=== PATIENT | male | born 1955 | race Caucasian/White ===

== ENCOUNTER 2019-04-05 00:17 | Inpatient (IN) | payer BC ==
[~2019-04-05] VITALS: Ht 330.2 cm; Wt 71.0 kg
[~2019-04-05 00:17] MED LIST: DIPH50LI26 PO; FOLI1TAB16 PO; PANT40TA4 PO; thiamine tablet PO
[2019-04-05] MEDS ORDERED: MVI, adult No.4 with vit. K 10 ML in dextrose 5% water 500ml 500 ML IV ONE ×2 (00:30)
[2019-04-05] MEDS ORDERED: normal saline 1000ML IV soln IVB ONE (00:30)
[2019-04-05] MEDS ORDERED: LORazepam 2 mg/ml vial IV ONE (00:30)
[2019-04-05] MEDS ORDERED: ondansetron/PF 4mg/2ml inj IV ONE (00:35)
[2019-04-05] MEDS ORDERED: thiamine inj. 100 MG, magnesium 1 gm/2ml inj. 2 GM in normal saline 100ml IV soln 100 ML IV ONE (00:40)
[2019-04-05 00:53] LABS: HEMOGLOBIN 12.4 g/dl (14.0-17.9)
[2019-04-05 00:55] LABS: BASOPHILS % (AUTO) 0.8 % (0-1); EOSINOPHILS % (AUTO) 0.1 % (0-6); HEMATOCRIT 37.6 % (42.0-52.0); LYMPHOCYTES # (AUTO) 0.4 X10'3 (1.1-4.8); LYMPHOCYTES % (AUTO) 10.2 % (21-51); MEAN CORPUSCULAR HEMOGLOBIN 33.2 PG (27.0-31.0); MEAN CORPUSCULAR VOLUME 100.8 FL (78-98); MEAN PLATELET VOLUME 8.1 FL (7.4-10.4); MONOCYTES # (AUTO) 0.4 X10'3 (0-0.9); NEUTROPHILS # (AUTO) 3.4 X10'3 (1.8-7.7); NEUTROPHILS % (AUTO) 78.9 % (42-75); PLATELET COUNT 136 X10'3 (140-440); RED BLOOD COUNT 3.73 X10'6 (4.70-6.10); RED CELL DISTRIBUTION WIDTH 18.1 % (11.5-14.5); WHITE BLOOD COUNT 4.3 X10'3 (4.5-11.0)
[2019-04-05 01:10] LABS: PARTIAL THROMBOPLASTIN TIME 25 SECONDS (22-32)
[2019-04-05 01:15] LABS: CLARITY,URINE CLEAR (Clear); COLOR,URINE YELLOW (Yellow); GLUCOSE, URINE NEGATIVE (Neg); KETONES,URINE 15 mg/dl (Neg); LEUKOCYTE ESTERASE ,URINE NEGATIVE (Neg); NITRITES, URINE NEGATIVE (Neg); OCCULT BLOOD,URINE SMALL (Neg); PH,URINE 5.5 (4.8-8.0); PROTEIN,URINE 30 mg/dl (Neg)
[2019-04-05 01:23] LABS: UA COLLECTION TYPE URINAL
[2019-04-05 01:25] LABS: BACTERIA,URINE FEW /HPF (Neg); SQUAMOUS EPITHELIAL CELL,UR FEW /LPF (FEW); WBC,URINE 0-4 /HPF (0-4)
[2019-04-05 01:28] LABS: ANION GAP 26 (8-16); CHLORIDE 102 MMOL/L (99-107); GLUCOSE 114 MG/DL (70-104); POTASSIUM 3.8 MMOL/L (3.5-5.1); SODIUM 143 MMOL/L (135-145); TOTAL CARBON DIOXIDE 15.1 MMOL/L (24-32)
[2019-04-05 01:29] LABS: BLOOD UREA NITROGEN 7 MG/DL (7-18); BUN/CREATININE RATIO 5.4 (5.4-32.0); eGFR 56 ML/MIN
[2019-04-05 01:30] LABS: ALBUMIN 3.7 G/DL (3.4-5.0); BILIRUBIN,TOTAL 1.2 MG/DL (0.1-1.0); CALCIUM 8.8 MG/DL (8.5-10.1); TOTAL PROTEIN 6.9 G/DL (6.4-8.2); TROPONIN I < 0.04 NG/ML (0.0-0.05)
[2019-04-05 01:32] LABS: ALANINE AMINOTRANSFERASE 80 U/L (12-78); ALKALINE PHOSPHATASE 88 IU/L (46-116); ASPARTATE AMINO TRANSFERASE 218 U/L (10-37)
[2019-04-05 01:33] LABS: ETHANOL < 0.010 GM/DL (0.0-0.010)
[2019-04-05] MEDS ORDERED: NO HOME MEDS (01:52)
[2019-04-05 02:03] LABS: URINE AMPHETAMINE SCREEN NEGATIVE (Neg); URINE BARBITUATE SCREEN NEGATIVE (Neg); URINE BENZODIAZEPINES SCREEN POSITIVE (Neg); URINE CANNABINOID SCREEN NEGATIVE (Neg); URINE COCAINE SCREEN NEGATIVE (Neg); URINE METHADONE SCREEN NEGATIVE (Neg); URINE OPIATE SCREEN NEGATIVE (Neg); URINE PHENCYCLIDINE SCREEN NEGATIVE (Neg)
[2019-04-05] MEDS ORDERED: potassium CL 10mEq/100ml bag 100 ML IV PRN ×2 (02:25)
[2019-04-05] MEDS ORDERED: acetaminophen 325mg tablet PO PRN (02:25)
[2019-04-05] MEDS ORDERED: magnesium 2GM in 50ml NS 50 ML IV PRN (02:25)
[2019-04-05] MEDS ORDERED: magnesium 4gm in 100ml NS 100 ML IV PRN (02:25)
[2019-04-05] MEDS ORDERED: ondansetron/PF 4mg/2ml inj IV PRN (02:25)
[2019-04-05] MEDS ORDERED: magnesium Cl slow-release 64mg tablet PO PRN (02:25)
[2019-04-05] MEDS ORDERED: mag hydrox/Alum hydrox/simeth 30ml oral suspension PO PRN (02:25)
[2019-04-05] MEDS ORDERED: magnesium hydroxide 30ml (MOM) UD suspension PO PRN (02:25)
[2019-04-05] MEDS ORDERED: potassium Cl 20 mEq SR tablet PO PRN (02:25)
[2019-04-05] MEDS: normal saline 1000ml 1,000 ML IV SCH ×3 (02:31→19:00)
[2019-04-05] MEDS ORDERED: thiamine inj. 100 MG in normal saline 100ml IV soln 100 ML IV ONE (03:10)
[2019-04-05] MEDS ORDERED: LORazepam 1 MG tablet PO PRN (03:10)
[2019-04-05] MEDS: LORazepam 2 mg/ml vial IV PRN ×4 (05:31→22:59)
[2019-04-05 05:38] VITALS: BP 120/77
--- NOTE | 2019-04-05 06:30 | NUR ---
Patient in room PCU 3024X. I have received report from Carmelita HARTMANN and had the opportunity to ask questions and assume patient care.
[2019-04-05 07:30] VITALS: BP 133/79
[2019-04-05] MEDS: K and/or MAG REPLACEMENT MC SCH (08:00)
[2019-04-05] MEDS: enoxaparin 40mg/0.4ml syringe SQ SCH (08:44)
[2019-04-05] MEDS: thiamine inj. 100 MG, folic acid inj. 2 MG in normal saline 100ml IV soln 100 ML IV SCH (08:45)
[2019-04-05] MEDS: MVI, adult No.4 with vit. K 10 ML in dextrose 5% water 500ml 500 ML IV SCH ×2 (08:45)
[2019-04-05 09:26] LABS: ALANINE AMINOTRANSFERASE 75 U/L (12-78); ALBUMIN 3.3 G/DL (3.4-5.0); ALBUMIN/GLOBULIN RATIO 1.1 (1.1-1.5); ALKALINE PHOSPHATASE 82 IU/L (46-116); ANION GAP 9 (8-16); ASPARTATE AMINO TRANSFERASE 254 U/L (10-37); BILIRUBIN,TOTAL 1.2 MG/DL (0.1-1.0); BLOOD UREA NITROGEN 7 MG/DL (7-18); CHLORIDE 102 MMOL/L (99-107); CREATININE 0.78 MG/DL (0.60-1.10); GLUCOSE 121 MG/DL (70-104); POTASSIUM 3.8 MMOL/L (3.5-5.1); SODIUM 140 MMOL/L (135-145); TOTAL CARBON DIOXIDE 29.1 MMOL/L (24-32); TOTAL PROTEIN 6.2 G/DL (6.4-8.2); eGFR > 90 ML/MIN
[2019-04-05 11:00] VITALS: BP 123/78
[2019-04-05 15:00] VITALS: BP 125/81
[2019-04-05 18:00] VITALS: BP 141/85
--- NOTE | 2019-04-05 18:33 | NUR ---
Problems reprioritized. Patient report given, questions answered & plan of care reviewed with Carmelita HARTMANN.
[2019-04-05 22:00] VITALS: BP 140/86
--- NOTE | 2019-04-05 22:32 | NUR ---
Paged Dr. Royal for additional medication orders. Pt currently on mild etoh protocol, ativan dosage not sufficient to reduce anxiety or withdrawal symptoms.
[2019-04-05] MEDS ORDERED: haloperidol 5mg tablet PO PRN (22:40)
[2019-04-05] MEDS ORDERED: haloperidol lactate 5mg/ml inj IM PRN (22:40)
[2019-04-06] MEDS: LORazepam 2 mg/ml vial IV PRN ×7 (00:13→17:14)
[2019-04-06 02:00] VITALS: BP 128/77
--- NOTE | 2019-04-06 05:19 | NUR ---
Pt is having severe ETOH withdrawal symptoms. During the course of this overnight shift, withdrawal behaviors quickly escalated from mild anxiety/agitation, headache and tremors, to extreme agitation with auditory/visual/tactile hallucinations, moderate headache, confused to day/place/time, constantly pulling at IV and telemetry wires, attempting to get out of bed, sensitive to light and sound, as well as swatting at the sitter at bedside who was attempting to reorient him. Pt's alcohol withdrawal score was increasing and his behaviors were escalating on the mild protocol, where he was receiving 2mg of IV Ativan Q2hrs. After contacting Dr. Royal, she agreed this patient needed the moderate alcohol withdrawal protocol ordered. The patient has been receiving 2mg of IV Ativan approximately each hour overnight to control his agitation as well as one dose of IM Haldol. He has had a sitter at bedside redirecting his behavior since approximately 2300. Although all of his VS have been mildly elevated (HR, RR, BP), they have not required any PRN medications and his oxygen saturations remain WNL on room air. No seizure activity witnessed, will continue to monitor.
[2019-04-06 06:13] LABS: BASOPHILS % (AUTO) 0.9 % (0-1); EOSINOPHILS % (AUTO) 0.9 % (0-6); HEMATOCRIT 34.7 % (42.0-52.0); HEMOGLOBIN 11.6 g/dl (14.0-17.9); LYMPHOCYTES # (AUTO) 0.8 X10'3 (1.1-4.8); LYMPHOCYTES % (AUTO) 32.2 % (21-51); MEAN CORPUSCULAR HEMOGLOBIN 33.2 PG (27.0-31.0); MEAN CORPUSCULAR HGB CONC 33.3 g/dL (33.0-36.5); MEAN CORPUSCULAR VOLUME 99.6 FL (78-98); MEAN PLATELET VOLUME 8.2 FL (7.4-10.4); MONOCYTES # (AUTO) 0.2 X10'3 (0-0.9); MONOCYTES % (AUTO) 9.1 % (2-12); NEUTROPHILS # (AUTO) 1.3 X10'3 (1.8-7.7); NEUTROPHILS % (AUTO) 56.9 % (42-75); PLATELET COUNT 90 X10'3 (140-440); RED BLOOD COUNT 3.48 X10'6 (4.70-6.10); RED CELL DISTRIBUTION WIDTH 17.4 % (11.5-14.5); WHITE BLOOD COUNT 2.4 X10'3 (4.5-11.0)
[2019-04-06 06:21] LABS: ALANINE AMINOTRANSFERASE 76 U/L (12-78); ALBUMIN 3.2 G/DL (3.4-5.0); ALBUMIN/GLOBULIN RATIO 1.1 (1.1-1.5); ALKALINE PHOSPHATASE 73 IU/L (46-116); ANION GAP 9 (8-16); ASPARTATE AMINO TRANSFERASE 221 U/L (10-37); BILIRUBIN,TOTAL 1.2 MG/DL (0.1-1.0); BLOOD UREA NITROGEN 4 MG/DL (7-18); BUN/CREATININE RATIO 5.3 (5.4-32.0); CALCIUM 8.3 MG/DL (8.5-10.1); CHLORIDE 108 MMOL/L (99-107); CREATININE 0.75 MG/DL (0.60-1.10); GLUCOSE 81 MG/DL (70-104); MAGNESIUM 1.7 MG/DL (1.5-2.4); PHOSPHORUS 1.6 MG/DL (2.3-4.5); POTASSIUM 3.1 MMOL/L (3.5-5.1); SODIUM 144 MMOL/L (135-145); TOTAL CARBON DIOXIDE 26.7 MMOL/L (24-32); eGFR > 90 ML/MIN
[2019-04-06 06:30] VITALS: BP 137/84
[2019-04-06] MEDS: potassium Cl 20 mEq SR tablet PO PRN ×3 (07:42→15:50)
[2019-04-06] MEDS: enoxaparin 40mg/0.4ml syringe SQ SCH (07:44)
[2019-04-06] MEDS: nicotine 14mg patch - 24hr TD SCH (07:48)
[2019-04-06] MEDS: MVI, adult No.4 with vit. K 10 ML in dextrose 5% water 500ml 500 ML IV SCH ×2 (07:49)
[2019-04-06] MEDS: thiamine inj. 100 MG, folic acid inj. 2 MG in normal saline 100ml IV soln 100 ML IV SCH (07:49)
[2019-04-06] MEDS: K and/or MAG REPLACEMENT MC SCH (08:02)
--- NOTE | 2019-04-06 08:19 | NUR ---
Paged Dr Joyner regarding blood glucose PAGER ID: [phone] MESSAGE: Stefania gimenez PCU: SANTOSH Martins, S. 3026B. FYI that patients blood sugar was 73 at 0805. Thank you Addendum: 04/06/19 at 0823 by Stefania Mcclure RN Paged Dr Joyner to disregard above page, it was the wrong patient.
[2019-04-06] MEDS: normal saline 1000ml 1,000 ML IV SCH ×2 (08:24→20:11)
[2019-04-06 11:00] VITALS: BP 134/83
[2019-04-06 15:00] VITALS: BP 129/89
--- NOTE | 2019-04-06 15:45 | NUR ---
Fever of 101.4. Tylenol 650mg PO PRN given. Will continue to monitor.
[2019-04-06] MEDS: gabapentin 100mg capsule PO SCH (15:49)
[2019-04-06] MEDS: acetaminophen 325mg tablet PO PRN (15:49)
[2019-04-06] MEDS: chlordiazePOXIDE 25mg capsule PO SCH (15:49)
--- NOTE | 2019-04-06 16:30 | NUR ---
Reassessed temp. Fever now at 101.7; tepid sponge bath done, ice water given. Will continue to monitor.
--- NOTE | 2019-04-06 17:08 | NUR ---
PAGER ID: [phone] MESSAGE: [id number]; Ember Martins Pt. temp 101.4 @ 1500. Kya given. Temp 101.7 now. HR 138. Pls. advise. Thanks! Eladio Jane [id number] Addendum: 04/06/19 at 1720 by Stefania Mcclure RN No new orders from Dr Joyner than to give already ordered PRN Ativan. Dr Joyner said he may end up ordering blood cultures
--- NOTE | 2019-04-06 17:49 | NUR ---
Temp down to 99.6. Will continue to monitor closely
--- NOTE | 2019-04-06 18:37 | NUR ---
Problems reprioritized. Patient report given, questions answered & plan of care reviewed with Deedee HARTMANN.
--- NOTE | 2019-04-06 18:40 | NUR ---
Patient in room PCU 3026. I have received report from SHAHBAZ Aguiar and had the opportunity to ask questions and assume patient care.
[2019-04-06 19:00] VITALS: BP 122/82
[2019-04-06 23:00] VITALS: BP 130/83
[2019-04-07] MEDS: gabapentin 100mg capsule PO SCH ×4 (00:10→23:23)
[2019-04-07] MEDS: chlordiazePOXIDE 25mg capsule PO SCH ×4 (00:10→23:23)
[2019-04-07] MEDS: LORazepam 2 mg/ml vial IV PRN ×2 (00:11→01:57)
[2019-04-07] MEDS: normal saline 1000ml 1,000 ML IV SCH ×2 (01:58→16:06)
[2019-04-07 05:23] LABS: BASOPHILS % (AUTO) 0.3 % (0-1); EOSINOPHILS % (AUTO) 0.1 % (0-6); HEMATOCRIT 36.5 % (42.0-52.0); HEMOGLOBIN 12.4 g/dl (14.0-17.9); LYMPHOCYTES # (AUTO) 0.7 X10'3 (1.1-4.8); LYMPHOCYTES % (AUTO) 11.9 % (21-51); MEAN CORPUSCULAR HEMOGLOBIN 33.7 PG (27.0-31.0); MEAN CORPUSCULAR VOLUME 99.2 FL (78-98); MEAN PLATELET VOLUME 9.1 FL (7.4-10.4); MONOCYTES # (AUTO) 0.5 X10'3 (0-0.9); MONOCYTES % (AUTO) 7.6 % (2-12); NEUTROPHILS % (AUTO) 80.1 % (42-75); PLATELET COUNT 73 X10'3 (140-440); RED BLOOD COUNT 3.68 X10'6 (4.70-6.10); RED CELL DISTRIBUTION WIDTH 16.8 % (11.5-14.5); WHITE BLOOD COUNT 6.2 X10'3 (4.5-11.0)
[2019-04-07 05:43] LABS: ALANINE AMINOTRANSFERASE 77 U/L (12-78); ALBUMIN 3.2 G/DL (3.4-5.0); ALKALINE PHOSPHATASE 81 IU/L (46-116); ANION GAP 9 (8-16); ASPARTATE AMINO TRANSFERASE 194 U/L (10-37); BILIRUBIN,TOTAL 1.3 MG/DL (0.1-1.0); CALCIUM 8.6 MG/DL (8.5-10.1); CHLORIDE 106 MMOL/L (99-107); CREATININE 0.83 MG/DL (0.60-1.10); GLUCOSE 93 MG/DL (70-104); MAGNESIUM 1.4 MG/DL (1.5-2.4); PHOSPHORUS 1.3 MG/DL (2.3-4.5); POTASSIUM 3.5 MMOL/L (3.5-5.1); SODIUM 141 MMOL/L (135-145); TOTAL CARBON DIOXIDE 26.2 MMOL/L (24-32); TOTAL PROTEIN 6.5 G/DL (6.4-8.2); eGFR > 90 ML/MIN
[2019-04-07 05:55] LABS: BLOOD UREA NITROGEN 4 MG/DL (7-18); BUN/CREATININE RATIO 4.8 (5.4-32.0)
--- NOTE | 2019-04-07 06:08 | NUR ---
Problems reprioritized. Patient report given, questions answered & plan of care reviewed with Stefania RN, PamelaRN.
[2019-04-07 06:30] VITALS: BP 136/89
[2019-04-07 07:02] LABS: PLATELET ESTIMATE DECREASED
[2019-04-07 07:11] LABS: ANISOCYTOSIS 1+; LARGE PLATELETS FEW
[2019-04-07 07:12] LABS: HYPOCHROMASIA 1+
[2019-04-07] MEDS: K and/or MAG REPLACEMENT MC SCH (08:00)
[2019-04-07] MEDS: nicotine 14mg patch - 24hr TD SCH (08:18)
[2019-04-07] MEDS: thiamine inj. 100 MG, folic acid inj. 2 MG in normal saline 100ml IV soln 100 ML IV SCH (08:23)
[2019-04-07] MEDS: MVI, adult No.4 with vit. K 10 ML in dextrose 5% water 500ml 500 ML IV SCH ×2 (08:24)
[2019-04-07 11:00] VITALS: BP 123/81
[2019-04-07 15:00] VITALS: BP 105/74
--- NOTE | 2019-04-07 18:10 | NUR ---
Patient in room PCU 3026. I have received report from SHAHBAZ Aguiar and had the opportunity to ask questions and assume patient care.
--- NOTE | 2019-04-07 18:12 | NUR ---
Problems reprioritized. Patient report given, questions answered & plan of care reviewed with Deedee HARTMANN.
--- NOTE | 2019-04-07 18:23 | NUR ---
New hire documentation: I have reviewed and agree with all interventions, assessments performed and documented by Pamela HARTMANN.
[2019-04-07 19:00] VITALS: BP 109/81
[2019-04-07] MEDS ORDERED: LORazepam 1 MG tablet PO PRN (22:40)
[2019-04-07] MEDS ORDERED: LORazepam 2 mg/ml vial IV PRN (22:40)
[2019-04-07 23:00] VITALS: BP 105/70
[2019-04-08] MEDS: normal saline 1000ml 1,000 ML IV SCH ×2 (02:33→14:15)
[2019-04-08 05:21] LABS: BASOPHILS % (AUTO) 0.3 % (0-1); EOSINOPHILS # (AUTO) 0.1 X10'3 (0-0.9); EOSINOPHILS % (AUTO) 1.3 % (0-6); HEMATOCRIT 33.7 % (42.0-52.0); HEMOGLOBIN 11.2 g/dl (14.0-17.9); LYMPHOCYTES # (AUTO) 0.9 X10'3 (1.1-4.8); LYMPHOCYTES % (AUTO) 16.7 % (21-51); MEAN CORPUSCULAR HEMOGLOBIN 33.8 PG (27.0-31.0); MEAN CORPUSCULAR HGB CONC 33.3 g/dL (33.0-36.5); MEAN CORPUSCULAR VOLUME 101.3 FL (78-98); MEAN PLATELET VOLUME 9.6 FL (7.4-10.4); MONOCYTES # (AUTO) 0.6 X10'3 (0-0.9); NEUTROPHILS # (AUTO) 3.7 X10'3 (1.8-7.7); NEUTROPHILS % (AUTO) 69.7 % (42-75); PLATELET COUNT 69 X10'3 (140-440); RED BLOOD COUNT 3.33 X10'6 (4.70-6.10); RED CELL DISTRIBUTION WIDTH 17.3 % (11.5-14.5); WHITE BLOOD COUNT 5.3 X10'3 (4.5-11.0)
[2019-04-08 05:35] LABS: ALANINE AMINOTRANSFERASE 56 U/L (12-78); ALBUMIN 2.5 G/DL (3.4-5.0); ALBUMIN/GLOBULIN RATIO 0.8 (1.1-1.5); ALKALINE PHOSPHATASE 71 IU/L (46-116); ANION GAP 9 (8-16); ASPARTATE AMINO TRANSFERASE 107 U/L (10-37); BILIRUBIN,TOTAL 1.1 MG/DL (0.1-1.0); BLOOD UREA NITROGEN 10 MG/DL (7-18); BUN/CREATININE RATIO 13.9 (5.4-32.0); CALCIUM 7.8 MG/DL (8.5-10.1); CHLORIDE 108 MMOL/L (99-107); CREATININE 0.72 MG/DL (0.60-1.10); GLUCOSE 89 MG/DL (70-104); MAGNESIUM 1.4 MG/DL (1.5-2.4); PHOSPHORUS 2.1 MG/DL (2.3-4.5); SODIUM 142 MMOL/L (135-145); TOTAL CARBON DIOXIDE 25.2 MMOL/L (24-32); TOTAL PROTEIN 5.7 G/DL (6.4-8.2); eGFR > 90 ML/MIN
[2019-04-08 05:45] LABS: POTASSIUM 3.2 MMOL/L (3.5-5.1)
--- NOTE | 2019-04-08 06:23 | NUR ---
Problems reprioritized. Patient report given, questions answered & plan of care reviewed with SHAHBAZ Blum.
--- NOTE | 2019-04-08 06:31 | NUR ---
Patient in room PCU 3017. I have received report from Deedee HARTMANN and had the opportunity to ask questions and assume patient care.
[2019-04-08] MEDS ORDERED: potassium CL 10mEq/100ml bag 100 ML IV PRN (06:45)
[2019-04-08] MEDS ORDERED: magnesium 4gm in 100ml NS 100 ML IV PRN (06:45)
[2019-04-08] MEDS ORDERED: potassium Cl 20 mEq SR tablet PO PRN (06:45)
[2019-04-08] MEDS ORDERED: magnesium 2GM in 50ml NS 50 ML IV PRN (06:45)
[2019-04-08 07:00] VITALS: BP 100/68
[2019-04-08] MEDS: K and/or MAG REPLACEMENT MC SCH (08:00)
[2019-04-08] MEDS: multivitamins, therapeutics tablet PO SCH (08:17)
[2019-04-08] MEDS: folic acid 1mg tablet PO SCH (08:17)
[2019-04-08] MEDS: thiamine 100mg tablet PO SCH (08:17)
[2019-04-08] MEDS: gabapentin 100mg capsule PO SCH ×2 (08:17→18:17)
[2019-04-08] MEDS: chlordiazePOXIDE 25mg capsule PO SCH (08:17)
[2019-04-08] MEDS: nicotine 14mg patch - 24hr TD SCH (08:18)
[2019-04-08] MEDS: potassium Cl 20 mEq SR tablet PO PRN ×2 (08:18→22:00)
[2019-04-08] MEDS: magnesium Cl slow-release 64mg tablet PO PRN ×2 (08:18→22:00)
[2019-04-08] MEDS ORDERED: sodium phosphate inj. 30 MMOL in dextrose 5%-water 250 ML IV ONE (08:20)
[2019-04-08 11:00] VITALS: BP 100/72
[2019-04-08 15:00] VITALS: BP 103/65
--- NOTE | 2019-04-08 18:15 | NUR ---
Patient in room PCU 3026. I have received report from SHAHBAZ Blum and had the opportunity to ask questions and assume patient care.
[2019-04-08 19:00] VITALS: BP 120/68
[2019-04-08 23:00] VITALS: BP 103/69
[2019-04-09] MEDS: gabapentin 100mg capsule PO SCH ×3 (00:05→16:00)
[2019-04-09] MEDS: potassium Cl 20 mEq SR tablet PO PRN ×3 (02:13→21:08)
[2019-04-09 03:00] VITALS: BP 106/70
[2019-04-09 04:42] LABS: BASOPHILS % (AUTO) 0.8 % (0-1); EOSINOPHILS # (AUTO) 0.1 X10'3 (0-0.9); EOSINOPHILS % (AUTO) 2.8 % (0-6); HEMATOCRIT 32.7 % (42.0-52.0); LYMPHOCYTES # (AUTO) 0.9 X10'3 (1.1-4.8); LYMPHOCYTES % (AUTO) 24.1 % (21-51); MEAN CORPUSCULAR HEMOGLOBIN 33.7 PG (27.0-31.0); MEAN CORPUSCULAR HGB CONC 33.5 g/dL (33.0-36.5); MEAN CORPUSCULAR VOLUME 100.5 FL (78-98); MEAN PLATELET VOLUME 8.2 FL (7.4-10.4); MONOCYTES # (AUTO) 0.7 X10'3 (0-0.9); MONOCYTES % (AUTO) 18.2 % (2-12); NEUTROPHILS % (AUTO) 54.1 % (42-75); PLATELET COUNT 76 X10'3 (140-440); RED BLOOD COUNT 3.26 X10'6 (4.70-6.10); WHITE BLOOD COUNT 3.6 X10'3 (4.5-11.0)
[2019-04-09 05:12] LABS: ALANINE AMINOTRANSFERASE 51 U/L (12-78); ALBUMIN 2.5 G/DL (3.4-5.0); ALBUMIN/GLOBULIN RATIO 0.8 (1.1-1.5); ALKALINE PHOSPHATASE 71 IU/L (46-116); ANION GAP 9 (8-16); ASPARTATE AMINO TRANSFERASE 74 U/L (10-37); BILIRUBIN,TOTAL 0.8 MG/DL (0.1-1.0); BLOOD UREA NITROGEN 10 MG/DL (7-18); BUN/CREATININE RATIO 14.5 (5.4-32.0); CALCIUM 7.6 MG/DL (8.5-10.1); CHLORIDE 109 MMOL/L (99-107); CREATININE 0.69 MG/DL (0.60-1.10); GLUCOSE 93 MG/DL (70-104); MAGNESIUM 1.1 MG/DL (1.5-2.4); PHOSPHORUS 2.8 MG/DL (2.3-4.5); POTASSIUM 3.3 MMOL/L (3.5-5.1); SODIUM 143 MMOL/L (135-145); TOTAL CARBON DIOXIDE 25.3 MMOL/L (24-32); TOTAL PROTEIN 5.7 G/DL (6.4-8.2); eGFR > 90 ML/MIN
[2019-04-09] MEDS: normal saline 1000ml 1,000 ML IV SCH ×3 (05:14→16:24)
--- NOTE | 2019-04-09 06:20 | NUR ---
Problems reprioritized. Patient report given, questions answered & plan of care reviewed with SHAHBAZ Blum.
--- NOTE | 2019-04-09 06:28 | NUR ---
Patient in room PCU 3026. I have received report from Deedee HARTMANN and had the opportunity to ask questions and assume patient care.
[2019-04-09 07:00] VITALS: BP 96/64
[2019-04-09] MEDS: K and/or MAG REPLACEMENT MC SCH (08:00)
[2019-04-09] MEDS: multivitamins, therapeutics tablet PO SCH (08:10)
[2019-04-09] MEDS: folic acid 1mg tablet PO SCH (08:10)
[2019-04-09] MEDS: thiamine 100mg tablet PO SCH (08:10)
[2019-04-09] MEDS: nicotine 14mg patch - 24hr TD SCH (08:11)
--- NOTE | 2019-04-09 14:04 | NUR ---
WOUND INFECTION EDUCATION PROVIDED BY WOUND CARE 1. Patient instructed to call their primary doctor, or go the ED immediately if any of the following symptoms occur: * Increased pain in wound * Increase in drainage from the wound * Redness in the skin surrounding the wound * Warmth in the skin surrounding the wound * Bleeding from the wound * Temperature of 101 or greater 2. If any of these occur while in the hospital tell a nurse immediately. Addendum: 04/09/19 at 1405 by Kadie Diaz RN Amended: Links added.
[2019-04-09 15:00] VITALS: BP 108/71
--- NOTE | 2019-04-09 18:08 | NUR ---
Problems reprioritized. Patient report given, questions answered & plan of care reviewed with Shana HARTMANN. Patient stable at transfer of care.
--- NOTE | 2019-04-09 18:19 | NUR ---
Patient in room PCU 3026. I have received report from SHAHBAZ Blum and SHAHBAZ Galan and had the opportunity to ask questions and assume patient care.
[2019-04-09 19:00] VITALS: BP 111/74
[2019-04-09] MEDS ORDERED: LORazepam 2 mg/ml vial IV PRN (22:40)
[2019-04-09] MEDS ORDERED: LORazepam 1 MG tablet PO PRN (22:40)
[2019-04-09 23:00] VITALS: BP 125/82
[2019-04-10] MEDS: gabapentin 100mg capsule PO SCH ×3 (00:56→16:08)
[2019-04-10] MEDS: potassium Cl 20 mEq SR tablet PO PRN (01:10)
[2019-04-10 03:00] VITALS: BP 127/76
[2019-04-10] MEDS: normal saline 1000ml 1,000 ML IV SCH ×3 (03:17→22:24)
[2019-04-10 06:09] LABS: ALANINE AMINOTRANSFERASE 54 U/L (12-78); ALBUMIN 2.4 G/DL (3.4-5.0); ALBUMIN/GLOBULIN RATIO 0.8 (1.1-1.5); ALKALINE PHOSPHATASE 65 IU/L (46-116); ANION GAP 7 (8-16); ASPARTATE AMINO TRANSFERASE 88 U/L (10-37); BILIRUBIN,TOTAL 0.6 MG/DL (0.1-1.0); BLOOD UREA NITROGEN 9 MG/DL (7-18); CALCIUM 8.4 MG/DL (8.5-10.1); CHLORIDE 112 MMOL/L (99-107); GLUCOSE 93 MG/DL (70-104); PHOSPHORUS 1.9 MG/DL (2.3-4.5); POTASSIUM 4.1 MMOL/L (3.5-5.1); SODIUM 143 MMOL/L (135-145); TOTAL CARBON DIOXIDE 23.9 MMOL/L (24-32); TOTAL PROTEIN 5.4 G/DL (6.4-8.2); eGFR > 90 ML/MIN
--- NOTE | 2019-04-10 06:12 | NUR ---
Increase in anxiety and agitation with patient verbalizing need to go home. I was able to talk the patient into staying until he spoke the MD. Sitter still at bedside. Will continue to closely monitor.
--- NOTE | 2019-04-10 06:18 | NUR ---
Problems reprioritized. Patient report given, questions answered & plan of care reviewed with SHAHBAZ Blum.
--- NOTE | 2019-04-10 06:22 | NUR ---
Patient in room PCU 3026. I have received report from Shana HARTMANN and had the opportunity to ask questions and assume patient care.
[2019-04-10 07:00] VITALS: BP 132/87
--- NOTE | 2019-04-10 07:05 | NUR ---
Page sent to Dr. Cartwright: [id number] Rehan Martins: JAMIE, critical mag 1.0. Pt on replacement protocol, I will replace it. Thanks, Viktoria [phone]
[2019-04-10 07:33] LABS: BASOPHILS % (AUTO) 0.9 % (0-1); EOSINOPHILS # (AUTO) 0.1 X10'3 (0-0.9); EOSINOPHILS % (AUTO) 2.9 % (0-6); HEMATOCRIT 32.8 % (42.0-52.0); LYMPHOCYTES # (AUTO) 0.8 X10'3 (1.1-4.8); LYMPHOCYTES % (AUTO) 22.3 % (21-51); MEAN CORPUSCULAR HGB CONC 33.4 g/dL (33.0-36.5); MEAN CORPUSCULAR VOLUME 101.9 FL (78-98); MONOCYTES # (AUTO) 0.9 X10'3 (0-0.9); MONOCYTES % (AUTO) 25.7 % (2-12); NEUTROPHILS # (AUTO) 1.7 X10'3 (1.8-7.7); NEUTROPHILS % (AUTO) 48.2 % (42-75); PLATELET COUNT 130 X10'3 (140-440); RED BLOOD COUNT 3.22 X10'6 (4.70-6.10); RED CELL DISTRIBUTION WIDTH 16.7 % (11.5-14.5); WHITE BLOOD COUNT 3.4 X10'3 (4.5-11.0)
[2019-04-10] MEDS: K and/or MAG REPLACEMENT MC SCH (08:00)
[2019-04-10] MEDS: multivitamins, therapeutics tablet PO SCH (08:42)
[2019-04-10] MEDS: folic acid 1mg tablet PO SCH (08:42)
[2019-04-10] MEDS: thiamine 100mg tablet PO SCH (08:42)
[2019-04-10] MEDS: nicotine 14mg patch - 24hr TD SCH (08:46)
--- NOTE | 2019-04-10 10:30 | NUR ---
Initial: Pt admit with recurrent falls, alcohol withdrawal symptoms and anion gap acidosis likely secondary to alcoholism and dehydration per H&P. Pt with elevated liver enzymes at admit. Etoh w/d improved, acidosis resolved, and transaminitis secondary to alcoholism improving per MD progress notes. Pt continues on Etoh w/d protocol receiving routine Thiamine, Folic acid, and MVI. Pt currently on heart healthy diet with much improved PO intake since admit documented with 75-100% meeting nutrient needs. LBM 04/09. No edema or wounds. No nutrition diagnosis at this time. Will continue to follow. Recommendations: 1) Continue heart healthy diet 2) Continue Thiamine, Folic acid, and MVI given hx Etoh use 3) Wt per rx Addendum: 04/10/19 at [address] Amended: Links added.
[2019-04-10 11:00] VITALS: BP 107/69
--- NOTE | 2019-04-10 17:10 | NUR ---
Page sent to Dr. Cartwright: PAGER ID: [phone] MESSAGE: [id number] Rehan Martins: The patient has been following commands and has not been impulsive all day. 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 Thanks, Viktoria [phone]
--- NOTE | 2019-04-10 18:30 | NUR ---
Patient in room PCU 3026. I have received report from Viktoria HARTMANN and had the opportunity to ask questions and assume patient care.
--- NOTE | 2019-04-10 18:31 | NUR ---
Problems reprioritized. Patient report given, questions answered & plan of care reviewed with Samy Scales RN.
[2019-04-10 19:00] VITALS: BP 115/82
[2019-04-10 23:00] VITALS: BP 117/73
[2019-04-11] MEDS: gabapentin 100mg capsule PO SCH ×3 (00:14→16:00)
[2019-04-11] MEDS: acetaminophen 325mg tablet PO PRN (01:38)
[2019-04-11 03:00] VITALS: BP 128/81
[2019-04-11 06:00] VITALS: BP 139/73
[2019-04-11 06:30] VITALS: BP 139/73
--- NOTE | 2019-04-11 06:55 | NUR ---
Problems reprioritized. Patient report given, questions answered & plan of care reviewed with Blanca HARTMANN.
[2019-04-11] MEDS: K and/or MAG REPLACEMENT MC SCH (08:00)
[2019-04-11] MEDS: multivitamins, therapeutics tablet PO SCH (09:50)
[2019-04-11] MEDS: thiamine 100mg tablet PO SCH (09:50)
[2019-04-11] MEDS: normal saline 1000ml 1,000 ML IV SCH (09:50)
[2019-04-11] MEDS: folic acid 1mg tablet PO SCH (09:50)
[2019-04-11] MEDS: nicotine 14mg patch - 24hr TD SCH (09:51)
[2019-04-11] MEDS ORDERED: FOLI1TAB16 PO (10:42)
[2019-04-11] MEDS ORDERED: thiamine tablet PO (10:42)
[2019-04-11] MEDS ORDERED: NICO-631 TD (10:42)
[2019-04-11] MEDS ORDERED: GABA-530 PO (10:42)
[2019-04-11 11:00] VITALS: BP 125/78
== END 2019-04-11 15:40 | disposition home or self-care (01) | DRG 683 ==
LOC: ER 00:17 → PCU 3S 04:53
PROVIDERS: ADMIT Hospitalist; ATTEND Family Medicine
DX: N17.0 Acute kidney failure with tubular necrosis (principal); E87.2 Acidosis; F10.230 Alcohol dependence with withdrawal, uncomplicated; G62.9 Polyneuropathy, unspecified; W06.XXXA Fall from bed, initial encounter; Z60.2 Problems related to living alone; E87.6 Hypokalemia; E86.0 Dehydration; R74.0 Nonspecific elevation of levels of transaminase and lactic acid dehydrogenase [LDH]; E83.39 Other disorders of phosphorus metabolism; K70.10 Alcoholic hepatitis without ascites; F17.220 Nicotine dependence, chewing tobacco, uncomplicated; Z79.899 Other long term (current) drug therapy; Y93.89 Activity, other specified; Y92.89 Other specified places as the place of occurrence of the external cause; Y99.8 Other external cause status; E83.42 Hypomagnesemia
CPT/HCPCS: 36415; 70450; 71045; 80053; 80305; 80320; 81001; 82140; 82948; 83605; 83735; 84100; 84145; 84484; 85025; 85610; 85730; 87040; 87081; 93005; 96365; 96375; 97110; 97116; 97162; 97530; 99285; G0378; J1630; J1650; J2060; J2405; J3411; J3475; J3490; J7030; J7060

== ENCOUNTER 2019-05-04 17:10 | Emergency (ER) | payer BC ==
[~2019-05-04] VITALS: Ht 177.8 cm; Wt 88.0 kg
[~2019-05-04 17:10] MED LIST changes: -DIPH50LI26 PO; +GABA-530 PO; +NICO-631 TD; -PANT40TA4 PO
[2019-05-04] MEDS ORDERED: normal saline 1000ML IV soln IVB ONE (17:25)
[2019-05-04] MEDS ORDERED: thiamine 100mg tablet PO ONE (17:30)
[2019-05-04 18:04] LABS: BASOPHILS % (AUTO) 0.2 % (0-1); EOSINOPHILS % (AUTO) 0 % (0-6); HEMATOCRIT 31.2 % (42.0-52.0); HEMOGLOBIN 10.7 g/dl (14.0-17.9); LYMPHOCYTES # (AUTO) 0.6 X10'3 (1.1-4.8); LYMPHOCYTES % (AUTO) 4.4 % (21-51); MEAN CORPUSCULAR HGB CONC 34.3 g/dL (33.0-36.5); MEAN CORPUSCULAR VOLUME 102.2 FL (78-98); MEAN PLATELET VOLUME 8.1 FL (7.4-10.4); MONOCYTES # (AUTO) 1.5 X10'3 (0-0.9); MONOCYTES % (AUTO) 10.9 % (2-12); NEUTROPHILS % (AUTO) 84.5 % (42-75); PLATELET COUNT 383 X10'3 (140-440); RED BLOOD COUNT 3.05 X10'6 (4.70-6.10); WHITE BLOOD COUNT 14.2 X10'3 (4.5-11.0)
[2019-05-04 18:17] LABS: PARTIAL THROMBOPLASTIN TIME 25 SECONDS (22-32)
[2019-05-04 18:23] LABS: ALANINE AMINOTRANSFERASE 34 U/L (12-78); ALBUMIN 3.1 G/DL (3.4-5.0); ALBUMIN/GLOBULIN RATIO 0.8 (1.1-1.5); ALKALINE PHOSPHATASE 95 IU/L (46-116); ANION GAP 11 (8-16); ASPARTATE AMINO TRANSFERASE 56 U/L (10-37); BILIRUBIN,TOTAL 2.3 MG/DL (0.1-1.0); BLOOD UREA NITROGEN 17 MG/DL (7-18); BUN/CREATININE RATIO 20.2 (5.4-32.0); CALCIUM 8.5 MG/DL (8.5-10.1); CHLORIDE 94 MMOL/L (99-107); CREATINE KINASE 172 U/L (39-308); CREATININE 0.84 MG/DL (0.60-1.10); ETHANOL < 0.010 GM/DL (0.0-0.010); GLUCOSE 125 MG/DL (70-104); SODIUM 136 MMOL/L (135-145); TOTAL PROTEIN 6.9 G/DL (6.4-8.2); eGFR > 90 ML/MIN
[2019-05-04 18:25] LABS: POTASSIUM 2.8 MMOL/L (3.5-5.1)
[2019-05-04] MEDS ORDERED: potassium Cl 10 mEq/100mL bag IV ONE (18:45)
--- NOTE | 2019-05-04 18:47 | NUR ---
SHAHBAZ THAPA AND I PLACED PT IN C [facility]
--- NOTE | 2019-05-04 18:51 | NUR ---
PTS HOB ELEVATED 30 DEGREES
--- NOTE | 2019-05-04 18:55 | NUR ---
PT OUT TO CT AGAIN. HE SAID THE ONLY HEAD INJURY HE HAD WAS WHEN HE WAS IN HIGH SCHOOL AND PLAYED FOOTBALL.
[2019-05-04 18:59] LABS: MAGNESIUM 1.3 MG/DL (1.5-2.4)
--- NOTE | 2019-05-04 19:14 | NUR ---
WAS ABLE TO SWALLOW WATER, SO HE TOOK HIS THIAMINE. HE IS C/O THE C COLL[facility] BOTHERING HIM.
--- NOTE | 2019-05-04 19:28 | NUR ---
SALVADOR TO AMAIRANI HARTMANN AT [facility]
--- NOTE | 2019-05-04 19:41 | NUR ---
C [facility] REMOVED BY MD. EMS HERE AND SBAR TO EMS.
[2019-05-04 19:47] VITALS: BP 157/102
[2019-05-04 20:09] LABS: CLARITY,URINE CLEAR (Clear); GLUCOSE, URINE NEGATIVE (Neg); KETONES,URINE 40 mg/dl (Neg); LEUKOCYTE ESTERASE ,URINE NEGATIVE (Neg); OCCULT BLOOD,URINE SMALL (Neg); PROTEIN,URINE 100 mg/dl (Neg); UROBILINOGEN,URINE >=8.0 E.U/dL (0.2-1.0)
[2019-05-04 20:17] LABS: URINE AMPHETAMINE SCREEN NEGATIVE (Neg); URINE BARBITUATE SCREEN NEGATIVE (Neg); URINE BENZODIAZEPINES SCREEN POSITIVE (Neg); URINE CANNABINOID SCREEN NEGATIVE (Neg); URINE COCAINE SCREEN NEGATIVE (Neg); URINE METHADONE SCREEN NEGATIVE (Neg); URINE OPIATE SCREEN NEGATIVE (Neg); URINE PHENCYCLIDINE SCREEN NEGATIVE (Neg)
[2019-05-04 20:18] LABS: COLOR,URINE DARK YELLOW (Yellow); UA COLLECTION TYPE VOIDED
[2019-05-04 20:20] LABS: NITRITES, URINE NEGATIVE (Neg)
[2019-05-04 20:22] LABS: BACTERIA,URINE FEW /HPF (Neg); WBC,URINE 0-4 /HPF (0-4)
[2019-05-04 20:23] LABS: MUCUS STRANDS MANY /LPF (Neg); SQUAMOUS EPITHELIAL CELL,UR FEW /LPF (FEW)
== END 2019-05-04 19:49 | disposition short-term general hospital (02) ==
LOC: ER 17:10
DX: S06.5X0A Traumatic subdural hemorrhage without loss of consciousness, initial encounter (principal); S06.360A Traumatic hemorrhage of cerebrum, unspecified, without loss of consciousness, initial encounter; E87.6 Hypokalemia; D72.829 Elevated white blood cell count, unspecified; F10.99 Alcohol use, unspecified with unspecified alcohol-induced disorder; Z60.2 Problems related to living alone; Z79.899 Other long term (current) drug therapy; W18.39XA Other fall on same level, initial encounter; Y93.89 Activity, other specified; Y92.89 Other specified places as the place of occurrence of the external cause; Y99.8 Other external cause status; Y90.9 Presence of alcohol in blood, level not specified
CPT/HCPCS: 36415; 70450; 71045; 72125; 80053; 80305; 80320; 81001; 82140; 82550; 83735; 85025; 85610; 85730; 93005; 96374; 99291; J3480; J7030; 96365